=== PATIENT | female | born 1985 | race Caucasian/White ===

== ENCOUNTER 2020-08-28 23:12 | Outpatient (CLI) | payer SELFPAY ==
[~2020-08-28] VITALS: Ht 139.7 cm; Wt 55.9 kg
[2020-08-30] MEDS ORDERED: ASPI-515 PO (15:03)
[2020-08-30] MEDS ORDERED: PREN1TAB10 PO (15:03)
[2020-08-30] MEDS ORDERED: LEVO150C4 PO (15:04)
== END 2020-08-29 00:55 | disposition home or self-care (01) ==
LOC: LDOP 23:12
PROVIDERS: ATTEND Obstetrics & Gynecology
DX: O62.9 Abnormality of forces of labor, unspecified (principal); Z3A.37 37 weeks gestation of pregnancy
CPT/HCPCS: 59025

== ENCOUNTER 2020-08-30 13:19 | Inpatient (IN) | payer OTHER ==
[~2020-08-30] VITALS: Ht 139.7 cm; Wt 55.9 kg
[2020-08-30] MEDS: LACTATED RINGERS 1,000 ML IV SCH ×2 (13:45→19:01)
[2020-08-30] MEDS ORDERED: FENTANYL PF 100 MCG/2ML IV PRN (14:00)
[2020-08-30] MEDS ORDERED: OXYTOCIN 30U/ 0.9% NaCL 500ML 500 ML IV ONE (14:00)
[2020-08-30] MEDS ORDERED: TERBUTALINE 1 MG/ML, 1ML SQ PRN (14:00)
[2020-08-30] MEDS ORDERED: ONDANSETRON 2MG/ML, 2ML IVPush PRN (14:00)
[2020-08-30] MEDS ORDERED: FENTANYL PF 100 MCG/2ML IVPush PRN (14:00)
[2020-08-30] MEDS ORDERED: CALCIUM CARBONATE 500 MG TAB.CHEW PO PRN (14:00)
[2020-08-30] MEDS ORDERED: SODIUM CITRATE/CITRIC ACID 30 ML UDC PO PRN (14:00)
[2020-08-30] MEDS ORDERED: PLEASE ENTER ALLERGIES MC SCH (14:00)
[2020-08-30] MEDS ORDERED: OXYTOCIN 30U/ 0.9% NaCL 500ML 500 ML IV PRN ×2 (14:00→15:30)
[2020-08-30] MEDS ORDERED: TERBUTALINE 1 MG/ML, 1ML IVPush PRN (14:00)
[2020-08-30] MEDS ORDERED: NEWBORN KIT ONE (14:13)
[2020-08-30] MEDS ORDERED: MISOPROSTOL 200 MCG TABLET ONE (14:13)
[2020-08-30] MEDS ORDERED: LIDOCAINE 1%, 20ML ONE (14:13)
[2020-08-30] MEDS ORDERED: OXYTOCIN 30U/ 0.9% NaCL 500ML 500 ML ONE (14:13)
[2020-08-30 14:15] LABS: BASOPHILS % (AUTO) 1 % (0-1); EOSINOPHILS % (AUTO) 1 % (1-7); LYMPHOCYTES % (AUTO) 15 % (22-44); MEAN CORPUSCULAR HEMOGLOBIN 26.8 pg (27.0-34.8); MEAN CORPUSCULAR HGB CONC 32.9 g/dL (32.4-35.8); MEAN PLATELET VOLUME 7.1 fL (7.4-10.4); MONOCYTES % (AUTO) 8 % (2-9); NEUTROPHILS % (AUTO) 76 % (42-75); PLATELET COUNT 292 x10^3/uL (130-400); RED BLOOD COUNT 3.99 x10^6/uL (3.82-5.3); RED CELL DISTRIBUTION WIDTH 16.1 % (9.6-15.2)
[2020-08-30 14:18] LABS: MD NO
[2020-08-30] MEDS: PLEASE ENTER HEIGHT AND WEIGHT MC SCH ×2 (14:30→22:30)
[2020-08-30 14:32] VITALS: BP 106/62
[2020-08-30] MEDS ORDERED: PREN1TAB10 PO (15:03)
[2020-08-30] MEDS ORDERED: ASPI-515 PO (15:03)
[2020-08-30] MEDS ORDERED: LEVO150C4 PO (15:04)
[2020-08-30] MEDS: D5%-LACTATED RINGERS 1,000 ML IV SCH ×2 (15:30→23:30)
[2020-08-31 00:28] VITALS: BP 132/73
[2020-08-31] MEDS ORDERED: FENTANYL PF 100 MCG/2ML ONE (01:21)
[2020-08-31] MEDS: LACTATED RINGERS 1,000 ML IV SCH (02:04)
[2020-08-31] MEDS ORDERED: DIPH,PERTUSS(ACELL),TET VAC/PF NC IM-VACC PRN (03:30)
[2020-08-31] MEDS ORDERED: CARBOPROST TROMETHAMINE 250 MCG/ML, 1ML IM PRN (03:30)
[2020-08-31] MEDS ORDERED: OXYcodone/APAP 5/325MG TABLET PO PRN (03:30)
[2020-08-31] MEDS ORDERED: SIMETHICONE 80 MG CHEW TAB PO PRN (03:30)
[2020-08-31] MEDS ORDERED: METHYLERGONOVINE 0.2 MG/ML IM PRN (03:30)
[2020-08-31] MEDS ORDERED: MISOPROSTOL 200 MCG TABLET PR PRN (03:30)
[2020-08-31] MEDS ORDERED: ACETAMINOPHEN 325 MG TABLET PO PRN ×2 (03:30)
[2020-08-31] MEDS ORDERED: OXYTOCIN 30U/ 0.9% NaCL 500ML 500 ML ONE (03:40)
[2020-08-31] MEDS: OXYTOCIN 30U/ 0.9% NaCL 500ML 500 ML IV SCH ×3 (03:42→23:30)
[2020-08-31 05:09] VITALS: BP 121/81
[2020-08-31] MEDS: PRENATAL VIT/IRON/FA 1 EACH TABLET PO SCH (07:11)
[2020-08-31] MEDS: IBUPROFEN 600 MG TABLET PO PRN ×2 (07:11→18:24)
[2020-08-31] MEDS: DOCUSATE 100 MG CAPSULE PO PRN ×2 (07:11→18:24)
[2020-08-31 07:12] VITALS: BP 116/60
[2020-08-31 10:56] LABS: BASOPHILS % (AUTO) 1 % (0-1); EOSINOPHILS % (AUTO) 0 % (1-7); LYMPHOCYTES % (AUTO) 7 % (22-44); MEAN CORPUSCULAR HEMOGLOBIN 26.4 pg (27.0-34.8); MEAN CORPUSCULAR HGB CONC 32.6 g/dL (32.4-35.8); MEAN PLATELET VOLUME 7.1 fL (7.4-10.4); MONOCYTES % (AUTO) 5 % (2-9); NEUTROPHILS % (AUTO) 87 % (42-75); PLATELET COUNT 264 x10^3/uL (130-400); RED BLOOD COUNT 3.68 x10^6/uL (3.82-5.3); RED CELL DISTRIBUTION WIDTH 16.5 % (9.6-15.2)
[2020-08-31 11:21] LABS: MD SCAN
[2020-08-31 12:15] VITALS: BP 120/64
[2020-08-31 16:20] VITALS: BP 102/69
[2020-08-31 19:55] VITALS: BP 119/78
[2020-09-01 00:22] VITALS: BP 104/76
[2020-09-01 08:00] VITALS: BP 108/68
[2020-09-01] MEDS: PRENATAL VIT/IRON/FA 1 EACH TABLET PO SCH (08:16)
[2020-09-01] MEDS: IBUPROFEN 600 MG TABLET PO PRN (08:18)
[2020-09-01] MEDS: DOCUSATE 100 MG CAPSULE PO PRN (08:18)
[2020-09-01] MEDS ORDERED: IBUP-1222 PO (08:54)
== END 2020-09-01 13:15 | disposition home or self-care (01) | DRG 807 ==
LOC: LDOP 13:19 → MERGE 13:52 → LDIP 13:52 → UNMERGE 13:52 → 2NW 08-31 04:31
PROVIDERS: ADMIT Obstetrics & Gynecology; ATTEND Obstetrics & Gynecology
PROC: 10E0XZZ Delivery of Products of Conception, External Approach (ICD-10-PCS; principal; 2020-08-31)
DX: O80 Encounter for full-term uncomplicated delivery (principal); Z37.0 Single live birth; Z3A.38 38 weeks gestation of pregnancy; Z20.828 Contact with and (suspected) exposure to other viral communicable diseases; Z88.1 Allergy status to other antibiotic agents
CPT/HCPCS: 36415; 85025; 86592; 86850; 86900; 87635; G0378; J3010; J2590; J7120